=== PATIENT | male | born 1990 | race Caucasian/White ===

== ENCOUNTER 2021-09-09 14:16 | Inpatient (IN) | payer BC, MEDICAID ==
[~2021-09-09] VITALS: Ht 180.3 cm; Wt 181.8 kg
[~2021-09-09 14:16] MED LIST: DEC4T PO
[2021-09-09] MEDS ORDERED: normal saline 1000ML IV soln IVB ONE ×2 (14:40→15:50)
[2021-09-09 15:15] LABS: BASOPHILS # (AUTO) 0.1 X10'3 (0-0.2); BASOPHILS % (AUTO) 0.8 % (0-1); EOSINOPHILS # (AUTO) 0.2 X10'3 (0-0.9); EOSINOPHILS % (AUTO) 2.9 % (0-6); HEMATOCRIT 49.3 % (42.0-52.0); HEMOGLOBIN 17.1 g/dl (14.0-17.9); LYMPHOCYTES # (AUTO) 1.8 X10'3 (1.1-4.8); LYMPHOCYTES % (AUTO) 21.5 % (21-51); MEAN CORPUSCULAR HEMOGLOBIN 32.3 PG (27.0-31.0); MEAN CORPUSCULAR HGB CONC 34.7 g/dL (33.0-36.5); MEAN CORPUSCULAR VOLUME 93.1 FL (78-98); MEAN PLATELET VOLUME 8.4 FL (7.4-10.4); MONOCYTES # (AUTO) 0.8 X10'3 (0-0.9); MONOCYTES % (AUTO) 9.1 % (2-12); NEUTROPHILS # (AUTO) 5.5 X10'3 (1.8-7.7); NEUTROPHILS % (AUTO) 65.7 % (42-75); PLATELET COUNT 261 X10'3 (140-440); WHITE BLOOD COUNT 8.4 X10'3 (4.5-11.0)
[2021-09-09 15:43] LABS: ALBUMIN 3.9 G/DL (3.4-5.0); ALKALINE PHOSPHATASE 120 IU/L (46-116); ANION GAP 22 (8-16); BILIRUBIN,TOTAL 0.7 MG/DL (0.1-1.0); BLOOD UREA NITROGEN 15 MG/DL (7-18); BUN/CREATININE RATIO 10.8 (5.4-32.0); CHLORIDE 96 MMOL/L (99-107); CREATININE 1.39 MG/DL (0.60-1.10); PHOSPHORUS 4.3 MG/DL (2.3-4.5); POTASSIUM 4.5 MMOL/L (3.5-5.1); SODIUM 133 MMOL/L (135-145); TOTAL CARBON DIOXIDE 15.2 MMOL/L (24-32); TOTAL PROTEIN 7.9 G/DL (6.4-8.2); eGFR 60 ML/MIN
[2021-09-09 15:49] LABS: GLUCOSE 461 MG/DL (70-104)
[2021-09-09] MEDS ORDERED: ondansetron/PF 4mg/2ml inj IV ONE (15:50)
[2021-09-09 15:56] LABS: ALANINE AMINOTRANSFERASE 35 U/L (12-78); ASPARTATE AMINO TRANSFERASE 33 U/L (10-37)
[2021-09-09] MEDS ORDERED: insulin regular, human 10 units/0.1 ml syringe SQ ONE (16:00)
[2021-09-09 16:04] LABS: OSMOLALITY 326 MOSM/K (280-300)
[2021-09-09 17:41] LABS: CLARITY,URINE CLEAR (Clear); COLOR,URINE YELLOW (Yellow); GLUCOSE, URINE >=1000 mg/dl (Neg); KETONES,URINE >=80 mg/dl (Neg); LEUKOCYTE ESTERASE ,URINE NEGATIVE (Neg); NITRITES, URINE NEGATIVE (Neg); OCCULT BLOOD,URINE TRACE-INTACT (Neg); PH,URINE 5.5 (4.8-8.0); PROTEIN,URINE TRACE mg/dl (Neg); UROBILINOGEN,URINE 0.2 E.U/dL (0.2-1.0)
[2021-09-09 17:45] LABS: UA COLLECTION TYPE CLN CATCH MIDSTREAM
[2021-09-09] MEDS ORDERED: acetaminophen 325mg tablet PO PRN ×2 (17:45)
[2021-09-09] MEDS ORDERED: mag hydrox/Alum hydrox/simeth 30ml oral suspension PO PRN (17:45)
[2021-09-09] MEDS ORDERED: PERFLUTREN PROTEIN-A MICROSPHR (Optison) 0.22 MG/ML 3ML VIAL IV ONE (17:45)
[2021-09-09] MEDS ORDERED: diphenhydrAMINE 25mg capsule PO PRN (17:45)
[2021-09-09] MEDS ORDERED: acetaminophen 650mg rectal suppository RC PRN (17:45)
[2021-09-09] MEDS ORDERED: insulin regular, human U-100 3ml vial - multi-dose IV PRN (17:45)
[2021-09-09] MEDS ORDERED: sodium bicarbonate (8.4%) inj. 50 MEQ in dextrose 5% water 500ml 250 ML IV PRN (17:45)
[2021-09-09] MEDS ORDERED: magnesium 4gm in 100ml NS 100 ML IV PRN (17:45)
[2021-09-09] MEDS ORDERED: magnesium 2GM in 50ml NS 50 ML IV PRN (17:45)
[2021-09-09] MEDS ORDERED: potassium CL 20mEq in D5-1/2NS 1,000 ML IV PRN (17:45)
[2021-09-09] MEDS ORDERED: sodium phosphate inj. 30 MMOL in dextrose 5%-water 250 ML IV PRN (17:45)
[2021-09-09] MEDS ORDERED: HYDROcodone/acetaminophen 10/325mg tab PO PRN (17:45)
[2021-09-09] MEDS ORDERED: bisacodyl 10mg suppository rectal RC PRN (17:45)
[2021-09-09] MEDS ORDERED: normal saline 1000ml 1,000 ML IV SCH (17:45)
[2021-09-09] MEDS ORDERED: sodium bicarbonate (8.4%) inj. 100 MEQ in dextrose 5% water 500ml 500 ML IV PRN (17:45)
[2021-09-09] MEDS ORDERED: magnesium hydroxide 30ml (MOM) UD suspension PO PRN (17:45)
[2021-09-09] MEDS ORDERED: Neutra Phos packet PO PRN (17:45)
[2021-09-09] MEDS ORDERED: potassium Cl 40MEQ/1/2NS 520ml 520 ML IV PRN ×2 (17:45)
[2021-09-09] MEDS ORDERED: magnesium Cl slow-release 64mg tablet PO PRN (17:45)
[2021-09-09] MEDS ORDERED: potassium CL 10mEq/100ml bag 100 ML IV PRN (17:45)
[2021-09-09] MEDS ORDERED: ondansetron/PF 4mg/2ml inj IV PRN (17:45)
[2021-09-09] MEDS ORDERED: Insulin Reg/NS 100units/100mL 100 ML IV SCH (17:45)
[2021-09-09] MEDS ORDERED: morphine 2 MG/ML inj. syringe IV PRN ×2 (17:45)
[2021-09-09] MEDS ORDERED: sodium phosphate inj. 15 MMOL in dextrose 5%-water 250 ML IV PRN (17:45)
[2021-09-09] MEDS ORDERED: potassium Cl 20 mEq SR tablet PO PRN ×4 (17:45)
[2021-09-09] MEDS ORDERED: HYDROcodone/acetaminophen 5mg/325mg tablet PO PRN (17:45)
[2021-09-09 17:50] LABS: URINE AMPHETAMINE SCREEN NEGATIVE (Neg); URINE BARBITUATE SCREEN NEGATIVE (Neg); URINE BENZODIAZEPINES SCREEN NEGATIVE (Neg); URINE CANNABINOID SCREEN POSITIVE (Neg); URINE COCAINE SCREEN NEGATIVE (Neg); URINE METHADONE SCREEN NEGATIVE (Neg); URINE OPIATE SCREEN NEGATIVE (Neg); URINE PHENCYCLIDINE SCREEN NEGATIVE (Neg)
[2021-09-09 17:52] LABS: BACTERIA,URINE NONE SEEN /HPF (Neg); MUCUS STRANDS NONE SEEN /LPF (Neg); RBC,URINE 0-2 /HPF (0-2); SQUAMOUS EPITHELIAL CELL,UR FEW /LPF (FEW); WBC,URINE NONE SEEN /HPF (0-4)
[2021-09-09 18:03] LABS: ALBUMIN 3.6 G/DL (3.4-5.0); ANION GAP 21 (8-16); BLOOD UREA NITROGEN 15 MG/DL (7-18); BUN/CREATININE RATIO 10.6 (5.4-32.0); CALCIUM 8.2 MG/DL (8.5-10.1); CHLORIDE 97 MMOL/L (99-107); CREATININE 1.42 MG/DL (0.60-1.10); SODIUM 134 MMOL/L (135-145); TOTAL CARBON DIOXIDE 16.1 MMOL/L (24-32); eGFR 59 ML/MIN
[2021-09-09] MEDS: normal saline 1000ml 1,000 ML IV SCH ×2 (18:05→18:15)
[2021-09-09 18:10] LABS: HEMOGLOBIN A1C 10.1 % (4.5-6.2)
[2021-09-09 18:11] LABS: GLUCOSE 393 MG/DL (70-104); POTASSIUM 4.3 MMOL/L (3.5-5.1)
[2021-09-09] MEDS ORDERED: famotidine/PF 10 mg/ml inj IV ONE (18:20)
[2021-09-09] MEDS ORDERED: CLOT30CR19 TOP (19:10)
[2021-09-09] MEDS: docusate sod 100mg capsule PO SCH (20:00)
[2021-09-09] MEDS ORDERED: K and/or MAG REPLACEMENT MC SCH (20:00)
[2021-09-09] MEDS: pantoprazole 40MG/NS 100ML BAG 100 ML IV SCH (21:18)
[2021-09-09 23:44] LABS: ALBUMIN 3.4 G/DL (3.4-5.0); ALBUMIN/GLOBULIN RATIO 1.1 (1.1-1.5); ALKALINE PHOSPHATASE 93 IU/L (46-116); BILIRUBIN,TOTAL 0.4 MG/DL (0.1-1.0); BLOOD UREA NITROGEN 12 MG/DL (7-18); BUN/CREATININE RATIO 9.2 (5.4-32.0); CALCIUM 6.9 MG/DL (8.5-10.1); CHLORIDE 103 MMOL/L (99-107); TOTAL CARBON DIOXIDE 16.8 MMOL/L (24-32); TOTAL PROTEIN 6.4 G/DL (6.4-8.2); eGFR 65 ML/MIN
[2021-09-10 00:08] LABS: ALANINE AMINOTRANSFERASE 47 U/L (12-78); ANION GAP 19 (8-16); ASPARTATE AMINO TRANSFERASE 26 U/L (10-37); GLUCOSE 240 MG/DL (70-104); PHOSPHORUS 3.5 MG/DL (2.3-4.5); POTASSIUM 4.3 MMOL/L (3.5-5.1); SODIUM 139 MMOL/L (135-145)
[2021-09-10 04:35] LABS: ALANINE AMINOTRANSFERASE 44 U/L (12-78); ALBUMIN 3.3 G/DL (3.4-5.0); ALBUMIN/GLOBULIN RATIO 1.1 (1.1-1.5); ALKALINE PHOSPHATASE 84 IU/L (46-116); BILIRUBIN,TOTAL 0.4 MG/DL (0.1-1.0); BLOOD UREA NITROGEN 10 MG/DL (7-18); BUN/CREATININE RATIO 8.2 (5.4-32.0); CALCIUM 7.5 MG/DL (8.5-10.1); CHLORIDE 105 MMOL/L (99-107); CHOL/HDL RATIO 10.7 (0.00-4.99); CHOLESTEROL 290 MG/DL (0-200); CREATININE 1.22 MG/DL (0.60-1.10); GLUCOSE 250 MG/DL (70-104); HDL CHOLESTEROL 27 MG/DL (35-60); MAGNESIUM 1.6 MG/DL (1.5-2.4); TOTAL CARBON DIOXIDE 16.9 MMOL/L (24-32); TOTAL PROTEIN 6.2 G/DL (6.4-8.2); eGFR 70 ML/MIN
[2021-09-10 05:04] LABS: ANION GAP 16 (8-16); ASPARTATE AMINO TRANSFERASE 34 U/L (10-37); PHOSPHORUS 3.2 MG/DL (2.3-4.5); POTASSIUM 3.8 MMOL/L (3.5-5.1); SODIUM 138 MMOL/L (135-145)
[2021-09-10 05:07] LABS: LDL CHOLESTEROL 35 MG/DL (50-100); TRIGLYCERIDES 1339 MG/DL (20-135)
[2021-09-10] MEDS: heparin, porcine 5000 units/ml vial SQ SCH ×3 (06:58→21:50)
[2021-09-10] MEDS: K and/or MAG REPLACEMENT MC SCH ×3 (06:58→20:00)
--- NOTE | 2021-09-10 07:00 | NUR ---
non-admin last nights evening medications (colace, heparin, and k replacement) as the medications were never given by night nurse. unknown why. 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
[2021-09-10 07:12] LABS: BASOPHILS # (AUTO) 0.1 X10'3 (0-0.2); BASOPHILS % (AUTO) 0.7 % (0-1); EOSINOPHILS # (AUTO) 0.3 X10'3 (0-0.9); EOSINOPHILS % (AUTO) 4.5 % (0-6); HEMATOCRIT 42.6 % (42.0-52.0); HEMOGLOBIN 14.7 g/dl (14.0-17.9); LYMPHOCYTES # (AUTO) 1.7 X10'3 (1.1-4.8); LYMPHOCYTES % (AUTO) 24.1 % (21-51); MEAN CORPUSCULAR HGB CONC 34.5 g/dL (33.0-36.5); MEAN CORPUSCULAR VOLUME 92.6 FL (78-98); MEAN PLATELET VOLUME 8.2 FL (7.4-10.4); MONOCYTES # (AUTO) 0.6 X10'3 (0-0.9); MONOCYTES % (AUTO) 8.9 % (2-12); NEUTROPHILS # (AUTO) 4.4 X10'3 (1.8-7.7); NEUTROPHILS % (AUTO) 61.8 % (42-75); PLATELET COUNT 197 X10'3 (140-440); RED CELL DISTRIBUTION WIDTH 13.1 % (11.5-14.5); WHITE BLOOD COUNT 7.1 X10'3 (4.5-11.0)
[2021-09-10 07:25] VITALS: BP 129/72
[2021-09-10] MEDS ORDERED: aspirin 81mg, enteric-coated 1 TAB TABLET.DR PO ONE (08:35)
[2021-09-10] MEDS ORDERED: DEXTROSE 15 GM of carb/4 tabs (each vial/BOTTLE has 4 tablets) PO PRN ×2 (08:35)
[2021-09-10] MEDS ORDERED: glucagon, human recombinant 1mg kit SUBCUT PRN (08:35)
[2021-09-10] MEDS ORDERED: omega-3 acid ethyl esters 1GM capsule PO SCH (08:35)
[2021-09-10] MEDS ORDERED: MESSAGE TO PHARMACY PO ONE (08:35)
[2021-09-10] MEDS ORDERED: dextrose 50%-water 50ml dispensing syringe IV PRN ×2 (08:35)
[2021-09-10 09:37] LABS: PLATELET ESTIMATE NORMAL; TOTAL CELLS COUNTED 100
[2021-09-10 09:41] LABS: STOMATOCYTES 1+
[2021-09-10] MEDS: insulin Lispro (HumaLOG) vial - multi-dose SQ SCH ×3 (10:03→23:36)
[2021-09-10] MEDS: pantoprazole 40MG/NS 100ML BAG 100 ML IV SCH ×2 (10:16→21:50)
[2021-09-10] MEDS: fenofibrate 145mg tablet PO SCH (10:19)
[2021-09-10] MEDS: OMEGA-3/DHA/EPA/FISH OIL 1 EACH CAPSULE.DR PO SCH ×2 (10:19→21:47)
[2021-09-10] MEDS: lisinopril 10 MG tablet PO SCH (10:24)
[2021-09-10 10:29] LABS: BLOOD UREA NITROGEN 10 MG/DL (7-18); CHLORIDE 104 MMOL/L (99-107); MAGNESIUM 1.6 MG/DL (1.5-2.4)
[2021-09-10] MEDS: docusate sod 100mg capsule PO SCH ×2 (10:31→21:48)
[2021-09-10 10:50] LABS: ALBUMIN 3.2 G/DL (3.4-5.0); ANION GAP 15 (8-16); BUN/CREATININE RATIO 7.9 (5.4-32.0); CALCIUM 7.8 MG/DL (8.5-10.1); CREATININE 1.26 MG/DL (0.60-1.10); GLUCOSE 254 MG/DL (70-104); LIPASE 245 U/L (73-393); SODIUM 137 MMOL/L (135-145); eGFR 67 ML/MIN
[2021-09-10 10:51] LABS: POTASSIUM 4.3 MMOL/L (3.5-5.1)
[2021-09-10 11:00] VITALS: BP 119/71
[2021-09-10 15:00] VITALS: BP 118/66
--- NOTE | 2021-09-10 15:54 | NUR ---
DM Consult: Pt admit DX DKA, new onset likely T1DM A1C 10.1%, acute renal failure likely from dehydration, and metabolic acidosis per MD note. Pt made aware of DM DX per MD note; advanced to carb controlled diet w/ Glu 373mg/dl down from 461mg/dl on admit per EMR. PO 60 and 53g CHO first two meals though no other PO documentation so unable to fully assess nutrition status. Noted TG 1339, Cholesterol 290, LDL 35, HDL 27 w/ pt started on fish oil and Tricor per EMR. RD attempted to see pt twice today; first time working w/ RN and second time pt heavily sleeping only to wake up and immediately fall back asleep. Written DM ed w/ RD contact information left at bedside; pt will benefit from verbal DM/HH eds once more appropriate prior to discharge. Will continue to monitor for further nutrition intervention needs this admit. Rec: 1. continue carb controlled diet; consider heart healthy restriction pending PO trends given elevated lipid panel on admit per MD discretion 2. monitor for ONS needs pending PO documentation 3. routine bowel care 4. scaled wt this admit; subsequent weekly wts 5. Verbal DM/HH diet eds once more appropriate prior to discharge; new T1DM DX A1C 10.1% Addendum: 09/10/21 at [address] Amended: Links added.
[2021-09-10 18:00] VITALS: BP 128/60
--- NOTE | 2021-09-10 18:56 | NUR ---
Patient in room PCU 3015. I have received report from Cortney ANDREWS and had the opportunity to ask questions and assume patient care.
[2021-09-10] MEDS ORDERED: insulin glargine (Lantus) pen - multi-dose SQ SCH (21:00)
[2021-09-10 22:00] VITALS: BP 137/81
[2021-09-11 02:00] VITALS: BP 127/79
[2021-09-11 06:00] VITALS: BP 104/67
--- NOTE | 2021-09-11 06:25 | NUR ---
Problems reprioritized. Patient report given, questions answered & plan of care reviewed with Marcelina ANDREWS. Addendum: 09/11/21 at 0642 by Caroline Garcia RN WRONG RECEIVING AM nurse
--- NOTE | 2021-09-11 06:42 | NUR ---
Problems reprioritized. Patient report given, questions answered & plan of care reviewed with Brinda ANDREWS.
[2021-09-11 07:06] LABS: BASOPHILS % (AUTO) 0.5 % (0-1); EOSINOPHILS # (AUTO) 0.3 X10'3 (0-0.9); EOSINOPHILS % (AUTO) 4.6 % (0-6); HEMATOCRIT 39.5 % (42.0-52.0); HEMOGLOBIN 13.9 g/dl (14.0-17.9); LYMPHOCYTES # (AUTO) 1.5 X10'3 (1.1-4.8); LYMPHOCYTES % (AUTO) 27.1 % (21-51); MEAN CORPUSCULAR HEMOGLOBIN 32.1 PG (27.0-31.0); MEAN CORPUSCULAR HGB CONC 35.1 g/dL (33.0-36.5); MEAN CORPUSCULAR VOLUME 91.4 FL (78-98); MEAN PLATELET VOLUME 8.1 FL (7.4-10.4); MONOCYTES # (AUTO) 0.5 X10'3 (0-0.9); MONOCYTES % (AUTO) 9.9 % (2-12); NEUTROPHILS # (AUTO) 3.2 X10'3 (1.8-7.7); NEUTROPHILS % (AUTO) 57.9 % (42-75); PLATELET COUNT 167 X10'3 (140-440); RED BLOOD COUNT 4.32 X10'6 (4.70-6.10); RED CELL DISTRIBUTION WIDTH 12.9 % (11.5-14.5); WHITE BLOOD COUNT 5.6 X10'3 (4.5-11.0)
--- NOTE | 2021-09-11 07:18 | NUR ---
Patient in room PCU 3015. I have received report from JULIANA Velazquez and had the opportunity to ask questions and assume patient care.
[2021-09-11 07:31] LABS: ALANINE AMINOTRANSFERASE 41 U/L (12-78); ALBUMIN/GLOBULIN RATIO 1.1 (1.1-1.5); ALKALINE PHOSPHATASE 72 IU/L (46-116); ANION GAP 13 (8-16); BILIRUBIN,TOTAL 0.4 MG/DL (0.1-1.0); BLOOD UREA NITROGEN 7 MG/DL (7-18); BUN/CREATININE RATIO 6.4 (5.4-32.0); CHLORIDE 105 MMOL/L (99-107); GLUCOSE 252 MG/DL (70-104); MAGNESIUM 1.7 MG/DL (1.5-2.4); PHOSPHORUS 3.4 MG/DL (2.3-4.5); SODIUM 137 MMOL/L (135-145); TOTAL CARBON DIOXIDE 19.3 MMOL/L (24-32); TOTAL PROTEIN 5.7 G/DL (6.4-8.2); eGFR 79 ML/MIN
[2021-09-11 07:37] LABS: TRIGLYCERIDES 1104 MG/DL (20-135)
[2021-09-11 07:58] LABS: ASPARTATE AMINO TRANSFERASE 22 U/L (10-37)
[2021-09-11] MEDS ORDERED: aspirin 81mg, enteric-coated 1 TAB TABLET.DR PO SCH (08:00)
[2021-09-11] MEDS: K and/or MAG REPLACEMENT MC SCH (08:00)
[2021-09-11] MEDS: insulin Lispro (HumaLOG) vial - multi-dose SQ SCH ×2 (08:07→13:22)
[2021-09-11] MEDS: pantoprazole 40MG/NS 100ML BAG 100 ML IV SCH (08:29)
[2021-09-11] MEDS: OMEGA-3/DHA/EPA/FISH OIL 1 EACH CAPSULE.DR PO SCH (08:30)
[2021-09-11] MEDS: docusate sod 100mg capsule PO SCH (08:30)
[2021-09-11] MEDS: lisinopril 10 MG tablet PO SCH (08:30)
[2021-09-11] MEDS: fenofibrate 145mg tablet PO SCH (08:30)
[2021-09-11] MEDS: heparin, porcine 5000 units/ml vial SQ SCH (08:31)
[2021-09-11] MEDS ORDERED: FENO145T25 PO (10:25)
[2021-09-11] MEDS ORDERED: OMEG-166 PO (10:25)
[2021-09-11] MEDS ORDERED: ASPI-1071 PO (10:25)
[2021-09-11] MEDS ORDERED: LISI10TA27 PO (10:25)
[2021-09-11] MEDS ORDERED: LANTUS SQ (10:25)
[2021-09-11] MEDS ORDERED: PANT40TA54 PO (10:25)
[2021-09-11] MEDS ORDERED: INSU100V11 SQ (10:25)
[2021-09-11 11:00] VITALS: BP 97/50
[2021-09-11] MEDS ORDERED: normal saline 1000ml 1,000 ML IV ONE ×2 (11:10)
[2021-09-11] MEDS ORDERED: ONDA4TAB12 PO (12:38)
--- NOTE | 2021-09-11 13:45 | NUR ---
f/u 09/11: Pt states his has taken the written DM ed w/ RD contact info to their home. Provided pt w/ verbal DM and Heart Healthy education Addendum: 09/11/21 at [address] Amended: Links added.
--- NOTE | 2021-09-11 15:56 | NUR ---
Page sent Page Accepted Message: [id number]. [place] Rose. Patient is getting ready to be discharged. now said that he needs the meds sent to [facility] on [address]. Also wants Provider note for work. [id number] Brinda
== END 2021-09-11 17:58 | disposition home or self-care (01) | DRG 638 ==
LOC: ER 14:17 → ED HOLD 17:48 → PCU 3S 09-10 07:30
PROVIDERS: ADMIT Family Medicine; ATTEND Family Medicine
DX: E10.10 Type 1 diabetes mellitus with ketoacidosis without coma (principal); E87.1 Hypo-osmolality and hyponatremia; N17.9 Acute kidney failure, unspecified; Z68.43 Body mass index [BMI] 50.0-59.9, adult; E66.01 Morbid (severe) obesity due to excess calories; Z20.822 Contact with and (suspected) exposure to COVID-19; E78.1 Pure hyperglyceridemia; E86.0 Dehydration; F32.A Depression, unspecified; K29.70 Gastritis, unspecified, without bleeding; F12.90 Cannabis use, unspecified, uncomplicated; J45.909 Unspecified asthma, uncomplicated; K21.9 Gastro-esophageal reflux disease without esophagitis; Z80.41 Family history of malignant neoplasm of ovary; Z80.42 Family history of malignant neoplasm of prostate; Z87.891 Personal history of nicotine dependence; Z91.19 Patient's noncompliance with other medical treatment and regimen
CPT/HCPCS: 36415; 71045; 80048; 80053; 80061; 80305; 81001; 81002; 82009; 82800; 82948; 83036; 83605; 83690; 83735; 83930; 84100; 84145; 84478; 85007; 85025; 87040; 87635; 93306; 96361; 96372; 96374; 99285; C9113; C9803; G0378; J1644; J1815; J2405; J3490; J7030

== ENCOUNTER 2021-09-14 04:47 | Emergency (ER) | payer BC ==
[~2021-09-14] VITALS: Ht 180.3 cm; Wt 183.0 kg
[~2021-09-14 04:47] MED LIST changes: +ASPI-1071 PO; -DEC4T PO; +FENO145T25 PO; +INSU100V11 SQ; +LANTUS SQ; +LISI10TA27 PO; +OMEG-166 PO; +ONDA4TAB12 PO; +PANT40TA54 PO
[2021-09-14 06:17] LABS: BASOPHILS # (AUTO) 0.1 X10'3 (0-0.2); BASOPHILS % (AUTO) 0.7 % (0-1); EOSINOPHILS # (AUTO) 0.2 X10'3 (0-0.9); EOSINOPHILS % (AUTO) 2.8 % (0-6); HEMATOCRIT 39.3 % (42.0-52.0); HEMOGLOBIN 13.5 g/dl (14.0-17.9); LYMPHOCYTES # (AUTO) 1.3 X10'3 (1.1-4.8); LYMPHOCYTES % (AUTO) 16.7 % (21-51); MEAN CORPUSCULAR HEMOGLOBIN 31.5 PG (27.0-31.0); MEAN CORPUSCULAR HGB CONC 34.4 g/dL (33.0-36.5); MEAN CORPUSCULAR VOLUME 91.5 FL (78-98); MEAN PLATELET VOLUME 8.3 FL (7.4-10.4); MONOCYTES # (AUTO) 0.8 X10'3 (0-0.9); MONOCYTES % (AUTO) 10.6 % (2-12); NEUTROPHILS # (AUTO) 5.2 X10'3 (1.8-7.7); NEUTROPHILS % (AUTO) 69.2 % (42-75); PLATELET COUNT 170 X10'3 (140-440); WHITE BLOOD COUNT 7.5 X10'3 (4.5-11.0)
[2021-09-14 06:24] LABS: ALBUMIN 2.9 G/DL (3.4-5.0); ANION GAP 13 (8-16); BLOOD UREA NITROGEN 9 MG/DL (7-18); BUN/CREATININE RATIO 14.1 (5.4-32.0); CALCIUM 8.1 MG/DL (8.5-10.1); CHLORIDE 103 MMOL/L (99-107); CREATININE 0.64 MG/DL (0.60-1.10); GLUCOSE 216 MG/DL (70-104); SODIUM 138 MMOL/L (135-145); TOTAL CARBON DIOXIDE 22.2 MMOL/L (24-32); eGFR > 90 ML/MIN
[2021-09-14 06:37] LABS: POTASSIUM 4.2 MMOL/L (3.5-5.1)
[2021-09-14] MEDS ORDERED: normal saline 1000ML IV soln IVB ONE (11:40)
[2021-09-14] MEDS ORDERED: ketorolac tromethamine 15mg/ml inj. IV ONE (11:40)
--- NOTE | 2021-09-14 12:06 | NUR ---
AWAITING FOR PT TO GO TO [facility].
--- NOTE | 2021-09-14 12:07 | NUR ---
AWAITING FOR PT TO GO TO CT.
[2021-09-14] MEDS ORDERED: iohexol 300mg/ml 100ml inj. ONE (13:03)
[2021-09-14] MEDS ORDERED: LEVO500T90 PO (13:36)
--- NOTE | 2021-09-14 15:10 | NUR ---
Pt A&Ox4. Afebrile (97.9 orally), VSS. Discussed discharge instructions with pt - he is aware his abx prescription will be available at [facility] today and that he is to make follow up appt with PCP for Urology consult. PT verbalized understanding of these instructions. Right hand IV sl D/Loki. PT ambulating to car for D/C.
[2021-09-14 15:18] VITALS: BP 125/101
== END 2021-09-14 15:16 | disposition home or self-care (01) ==
LOC: ER 04:47
DX: N45.1 Epididymitis (principal); J45.909 Unspecified asthma, uncomplicated; F32.9 Major depressive disorder, single episode, unspecified; F12.10 Cannabis abuse, uncomplicated; Z79.899 Other long term (current) drug therapy
CPT/HCPCS: 36415; 74177; 76870; 76881; 80048; 85025; 93976; 96361; 96374; 99285; J1885; J7030; Q9967

== ENCOUNTER 2022-06-10 15:33 | Emergency (ER) | payer BC, OTHER ==
[~2022-06-10] VITALS: Ht 182.9 cm; Wt 188.6 kg
[~2022-06-10 15:33] MED LIST changes: -LANTUS SQ
[2022-06-10 16:14] VITALS: BP 142/80
[2022-06-10] MEDS ORDERED: orphenadrine citrate 60mg/2ml inj. IM ONE (17:55)
[2022-06-10] MEDS ORDERED: ketorolac trometh. 30mg/ml inj. IM ONE (17:55)
[2022-06-10] MEDS ORDERED: ORPH100T2 PO (17:57)
== END 2022-06-10 18:18 | disposition home or self-care (01) ==
LOC: ER 15:34
DX: S39.012A Strain of muscle, fascia and tendon of lower back, initial encounter (principal); J45.909 Unspecified asthma, uncomplicated; F32.A Depression, unspecified; F12.90 Cannabis use, unspecified, uncomplicated; Z79.82 Long term (current) use of aspirin; Z79.4 Long term (current) use of insulin; Z79.899 Other long term (current) drug therapy; X58.XXXA Exposure to other specified factors, initial encounter; Y93.89 Activity, other specified; Y92.89 Other specified places as the place of occurrence of the external cause; Y99.8 Other external cause status
CPT/HCPCS: 96372; 99284; J1885; J2360